=== PATIENT | male | born 1940 | race Caucasian/White ===

== ENCOUNTER 2024-09-24 21:16 | Emergency (ER) | payer MEDICARE | END 2024-09-24 22:10 | disposition home or self-care (01) | LOC: NAV ERS 21:16 | DX: T83.031A Leakage of indwelling urethral catheter, initial encounter (principal); S80.812A Abrasion, left lower leg, initial encounter; W18.30XA Fall on same level, unspecified, initial encounter | CPT/HCPCS: 99283 ==